=== PATIENT | male | born 1980 | race Caucasian/White ===

== ENCOUNTER 2016-09-04 03:56 | Emergency (ER) | payer OTHER ==
[~2016-09-04] VITALS: Ht 182.9 cm; Wt 84.8 kg
--- NOTE | 2016-09-04 05:39 | ED GI/GU/ABDOMINAL COMPLAINT ---
History of Present Illness General Chief Complaint: Nausea, Vomiting, Diarrhea Stated Complaint: NAUSEA AND VOMITING Source: patient Exam Limitations: no limitations Vital Signs & Intake/Output Vital Signs & Intake/Output Vital Signs Date Time Temp Pulse Resp B/P B/P Pulse O2 O2 Flow FiO2 Mean Ox Delivery Rate 09/04 0614 98.1 85 18 116/70 99 Room Air 09/04 0400 97.5 83 18 109/75 100 Room Air Reconcile Medications Hyoscyamine (Levsin) 0.125 MG TABLET 1-2 TAB PO Q6P PRN ABDOMINAL CRAMPS Ondansetron (Zofran Odt) 4 MG TAB.RAPDIS 1 TAB SL Q6P PRN NAUSEA/VOMITING Triage Nurses Notes Reviewed? yes HPI: PATIENT PRESENTS FOR EVALUATION OF ABRUPT ONSET OF VOMITING WITH ONE EPISODE OF DIARRHEA THAT BEGAN SHORTLY BEFORE ARRIVAL. Patient STATES HE IS ON A BUSINESS TRIP FROM [place]. He HAS BEEN EXPERIENCING A DIFFUSE ABDOMINAL PAIN THAT HE HAS DIFFICULTY DESCRIBING. No ASSOCIATED FEVER OR COLD SYMPTOMS. No ILL CONTACTS. No APPARENT SUSPICIOUS MEALS. Past History Travel History Traveled to [place] past 21 day No Medical History Any Pertinent Medical History? see below for history Surgical History Surgical History: non-contributory Family History Hx Contributory? No Review of Systems Review of Systems Constitutional: Reports: no symptoms. EENTM: Reports: no symptoms. Respiratory: Reports: no symptoms. Cardiovascular: Reports: no symptoms. GI: Reports: see HPI. Genitourinary: Reports: no symptoms. Musculoskeletal: Reports: no symptoms. Skin: Reports: no symptoms. Neurological/Psychological: Reports: no symptoms. Hematologic/Endocrine: Reports: no symptoms. Immunologic/Allergic: Reports: no symptoms. All Other Systems: Reviewed and Negative Physical Exam Physical Exam Gastrointestinal: SEE BELOW Comments: Gen.: Well-nourished, well-developed, no acute respiratory distress.patient appears mildly uncomfortable secondary to abdominal pain. Head: Normocephalic, atraumatic. Eyes: Normal inspection bilaterally Ears: Normal inspection bilaterally Nose: Normal inspection Throat/mouth : Moist mucosa Neck: Supple, full range of motion, no goiter Heart: Regular rate and rhythm, no murmurs rubs or gallops Lungs: Clear to auscultation bilaterally with normal air entry Chest: Nontender Back: Normal range of motion Abdomen: Soft, diffuse tenderness without rebound or guarding, nondistended, normal bowel sounds Extremities: Normal range of motion grossly, equal radial pulses, no cyanosis clubbing or edema Neurologic: Cranial nerves grossly intact, speech is clear Skin: warm and dry Psychiatric: Calm, cooperative, no apparent delusions or hallucinations Core Measures ACS in differential dx? No Severe Sepsis Present: No Septic Shock Present: No Progress Differential Diagnosis: FOOD POISONING, GASTROENTERITIS, TRAVELER'S DIARRHEA Plan of Care: Current Medications Sig/Dillan Start time Last Medication Dose Stop Time Status Admin Hyoscyamine 0.25 MG ONCE ONE 09/04 599 UNVr 09/04 (Levsin) 09/04 Ondansetron HCl 4 MG ONCE ONE 09/04 599 UNVr 09/04 (Zofran) 09/04 Initial ED EKG: none Comments: 09/04/2016 6:03:09 AM patient appears more comfortable and he states he feels better. 09/04/2016 6:33:51 AM Patient is now tolerating clear liquids. He feels he can return home. Departure Departure Disposition: HOME OR SELF CARE Condition: Stable Clinical Impression Primary Impression: Gastroenteritis Referrals: PATIENT HAS NO PRIMARY CARE DR (PCP/Family) Additional Instructions: Zofran as needed for nausea or vomiting. Levsin as needed for abdominal pain. Return to the emergency department for reevaluation if you don't feel better over the next 48 hours. Departure Forms: Customer Survey General Discharge Information Prescriptions: Current Visit Scripts Ondansetron (Zofran Odt) 1 TAB SL Q6P PRN NAUSEA/VOMITING #10 TAB Hyoscyamine (Levsin) 1-2 TAB PO Q6P PRN ABDOMINAL CRAMPS #20 TAB
[2016-09-04] MEDS ORDERED: ZOFRAN ODT4 M1 SL (06:04)
[2016-09-04] MEDS ORDERED: LEVSIN0.125 M1 PO (06:04)
[2016-09-04 06:14] VITALS: BP 116/70
== END 2016-09-04 06:47 ==
LOC: ERH
DX: K52.9 Noninfective gastroenteritis and colitis, unspecified (principal)
CPT/HCPCS: J3101